=== PATIENT | female | born 1985 | race Caucasian/White ===

== ENCOUNTER 2016-11-02 08:27 | Day surgery (SDC) | payer OTHER ==
[2016-10-31 13:48] VITALS: BMI 38.4
[~2016-11-02 08:27] MED LIST: LACTATED RINGERS 1,000 ML IV SCH; LIDOCAINE 1% 20 ML VIAL (10MG/ML) FOR IV START INTRADERMA PRN
[2016-11-02 08:50] VITALS: RESP 16; TEMP 97.5
[2016-11-02] MEDS ORDERED: PROPOFOL 10 MG/ML 20 ML VIAL IV ONE (09:06)
--- NOTE | 2016-11-02 09:09 | P.GSHP ---
History of Present Illness H&P Date: 11/02/16 Chief Complaint: Epigastric pain 's is a 31-year-old female who presents today for EGD. She's had issues of epigastric pain. Patient had previous cholecystectomy. Her recent x-ray shows a dislodged clip from her cholecystectomy. - Constitutional Constitutional: Reports as per HPI Past Medical History Additional Past Medical History / Comment(s): . History of Any Multi-Drug Resistant Organisms: None Reported Past Surgical History: Adenoidectomy, Appendectomy, Cholecystectomy, Tonsillectomy Past Anesthesia/Blood Transfusion Reactions: Motion Sickness Smoking Status: Current every day smoker - Past Family History Father Family Medical History: Cancer Medications and Allergies Home Medications Medication Instructions Recorded Confirmed Type ALPRAZolam [Xanax] 0.5 mg PO DAILY PRN 10/31/16 11/02/16 History Allergies Allergy/AdvReac Type Severity Reaction Status Date / Time No Known Allergies Allergy Verified 11/02/16 08:41 Surgical - Exam Vital Signs Temp Pulse Resp BP Pulse Ox 97.5 F L 68 16 114/72 98 11/02/16 08:49 11/02/16 08:49 11/02/16 08:49 11/02/16 08:49 11/02/16 08:49 - General well developed, no distress - Eyes PERRL - ENT normal pinna - Neck no masses - Respiratory normal expansion - Cardiovascular Rhythm: regular - Abdomen Abdomen: soft, non tender Assessment and Plan Plan: Epigastric dull pain. We'll perform EGD to evaluate for gastritis.
--- NOTE | 2016-11-02 09:22 | P.OP ---
Date of Procedure: 11/02/16 Preoperative Diagnosis: Epigastric dull pain Postoperative Diagnosis: Mild antral gastritis No hiatal hernia. Mild esophagitis Procedure(s) Performed: EGD Implants: Anesthesia: MAC Surgeon: Raimundo Edmondson Pathology: other (Antral esophagus) Condition: stable Disposition: PACU Indications for Procedure: Operative Findings: Description of Procedure: The patient's placed on the endoscopy table lateral position. She received IV sedation. The gastroscope was placed oropharynx and passed into the esophagus and into stomach. Scope was then placed through the pylorus. The first and second portion duodenum appeared normal. There is known to any inflammation. Scope was then brought back the antrum and this was mildly inflamed. A biopsies performed. Scope was then retroflexed and then the remainder stomach appeared normal. There is no hiatal hernia. The GE junction was at 40 cm. The distal esophagus appeared minimally inflamed. Biopsies performed. The proximal esophagus appeared normal. Scope withdrawn for patient.
[2016-11-02 09:44] VITALS: PULSE 57
[2016-11-02 09:53] VITALS: BP 112/73
== END 2016-11-02 10:22 | disposition home or self-care (01) ==
LOC: ORWHC2ENDO 08:27
PROVIDERS: ATTEND Surgery
DX: K29.50 Unspecified chronic gastritis without bleeding (principal); K20.9 Esophagitis, unspecified; F41.9 Anxiety disorder, unspecified; F17.200 Nicotine dependence, unspecified, uncomplicated; Z90.49 Acquired absence of other specified parts of digestive tract
CPT/HCPCS: 43239; 81025; 88305; 88342; J2704

== ENCOUNTER 2022-05-04 09:31 | Day surgery (SDC) | payer BC, OTHER ==
[2022-05-02 14:11] VITALS: BMI 37.5
--- NOTE | 2022-05-03 20:49 | HP ---
HISTORY AND PHYSICAL CHIEF COMPLAINT: Fluid in both ears. HISTORY OF PRESENT ILLNESS: This patient is a pleasant 36-year-old female, who was recently seen in my office complaining of having a plugged sensation and pain in both ears. At the time that the patient was seen in the office, clinical examination of the ears revealed chronic bilateral serous otitis media, so-called glue ear. The patient was placed on a course of Decadron Dos-Tay and Zithromax. She returned approximately 2 weeks later with the same complaints. Clinical examination reveals she still has chronic bilateral serous otitis media. It was recommended that she undergo a bilateral myringotomy with insertion of ventilation tubes under general anesthesia. PAST MEDICAL HISTORY: Reveals that she has no known allergies to medications. MEDICATIONS: She is not currently on any medications. PREVIOUS SURGERIES: Include a cholecystectomy, removal of foreign body from the right ear, multiple bilateral myringotomies with insertion of ventilation tubes as a child, tonsillectomy, and adenoidectomy. PHYSICAL EXAMINATION: GENERAL: This patient is a 36-year-old female, who is alert and cooperative. HEENT: The patient is normocephalic. Tympanic membranes are dull and retracted with fluid in both middle ear spaces. Pupils are equal, round, and react to light and accommodation. Extraocular movements are within normal limits. Intranasal examination reveals mild septal deviation with compensatory hypertrophy of the inferior turbinates and mild amount of mucus on the mucous membranes and draining down the posterior pharynx. Examination of oropharynx, cranial nerves 2 through 12, and remainder of the head and neck exam all within normal limits. CHEST/CARDIOVASCULAR: Both lung reyes are clear to percussion and auscultation. The patient is in regular sinus rhythm. S1 and S2 are present without any murmurs or S3's. Peripheral pulses are bilaterally symmetrical. ABDOMEN: There is no evidence of any masses, megaly, or tenderness. The abdomen is soft. SKIN: Unremarkable. MUSCULOSKELETAL AND NEUROLOGICAL: Within normal limits. PELVIC AND RECTAL: Deferred at this time because the patient has this done on a regular basis at her family physician's office. The remainder of the physical exam is unremarkable. IMPRESSION: Chronic bilateral serous otitis media. PLAN: The patient is scheduled to undergo a bilateral myringotomy with insertion of ventilation tubes under general anesthesia in a.m. Attention, RNs in the pre-surgical area: I have not ordered any pre-surgical prophylactic antibiotics for this patient. If the Pharmacy Department sends any pre- surgical prophylactic antibiotics to the pre-surgical area for this patient, that order should be cancelled, and the medication should be returned to the Pharmacy Department. Also, make sure that the patient's account is credited appropriately. I have discussed the risks, benefits and alternative therapies for the above-mentioned procedure and for both sedation/analgesia as well as necessary blood product administration, if indicated, as they pertain to this patient. The patient has indicated her understanding and acceptance of the risks and procedures discussed. MMODL / IJN: [id number] /
[~2022-05-04 09:31] MED LIST changes: -LACTATED RINGERS 1,000 ML IV SCH; -LIDOCAINE 1% 20 ML VIAL (10MG/ML) FOR IV START INTRADERMA PRN; +Pre Op ABX Message 1 EACH MISC MISCELLANE ONE
[2022-05-04] MEDS ORDERED: MIDAZOLAM 2 MG/2 ML VIAL IV PRN (10:16)
[2022-05-04] MEDS ORDERED: LACTATED RINGERS 1,000 ML IV SCH (10:16)
[2022-05-04] MEDS ORDERED: HYDROmorphone 0.5 MG/0.5 ML SYRINGE IVP PRN (10:16)
[2022-05-04] MEDS ORDERED: ONDANSETRON 4 MG/2 ML VIAL ONE (10:17)
[2022-05-04] MEDS ORDERED: LACTATED RINGERS 1,000 ML IV ONE ×2 (10:24→12:46)
[2022-05-04] MEDS ORDERED: ONDANSETRON 4 MG/2 ML VIAL IVP ONE (10:58)
[2022-05-04] MEDS ORDERED: DEXAMETHASONE SOD PHOSPHATE 4 MG/ML 1 ML VIAL IVP ONE (11:01)
[2022-05-04] MEDS ORDERED: PROPOFOL 10 MG/ML 20 ML VIAL IV ONE (12:19)
[2022-05-04] MEDS ORDERED: fentaNYL (PF) 50 MCG/ML 2 ML AMP ONE (12:19)
[2022-05-04] MEDS ORDERED: MIDAZOLAM 2 MG/2 ML VIAL ONE (12:19)
[2022-05-04] MEDS ORDERED: KETOROLAC 15 MG/ML 1 ML VIAL ONE (12:19)
[2022-05-04] MEDS ORDERED: OFLOXACIN 0.3% OPHTH DROPS 5 ML BOTTLE BOTH EARS ONE (12:39)
[2022-05-04 13:28] VITALS: TEMP 97.5
[2022-05-04] MEDS ORDERED: CITRIC ACID-SODIUM CITRATE 15 ML CUP PO ONE (13:34)
[2022-05-04 14:26] VITALS: RESP 16
[2022-05-04] MEDS ORDERED: ACETAMINOPHEN TAB 325 MG TAB ONE (14:42)
[2022-05-04] MEDS ORDERED: ACETAMINOPHEN TAB 325 MG TAB PO ONE (14:44)
[2022-05-04 14:51] VITALS: BP 118/80; PULSE 70
--- NOTE | 2022-05-07 18:13 | OP ---
OPERATIVE REPORT PREOPERATIVE DIAGNOSIS: Chronic bilateral serous otitis media. POSTOPERATIVE DIAGNOSIS: Chronic bilateral serous otitis media. ANESTHESIA: General. PROCEDURE PERFORMED: Bilateral myringotomy with insertion of Activent collar tubes. COMPLICATIONS: None. ESTIMATED BLOOD LOSS: Zero. DESCRIPTION OF PROCEDURE: The patient was placed on the Operating table in the supine position after uneventful induction and IV sedation, satisfactory general anesthesia was obtained. Next, the operating microscope was brought into position over the patient's right ear where after insertion of a #3 aural speculum, the external canal was cleansed of all wax and debris. The myringotomy knife was used to make an incision in the anterior inferior quadrant of the right tympanic membrane. The middle ear space was suctioned free of all fluid, and an Activent collar ventilation tube was inserted without any difficulty. Attention was then directed to the left ear where the same procedure was carried out using the operating microscope, #3 aural speculum, the external auditory canal was cleansed of all wax and debris. The myringotomy knife was used to make an incision in the anterior inferior quadrant of the left tympanic membrane and the middle ear space was suctioned free of all fluid. An Activent collar ventilation tube was inserted without any difficulty. At this point, the procedure was terminated. There were no intraoperative complications. The patient tolerated the procedure well and was returned to the Recovery Room in satisfactory condition. MMODL / IJN: [id number] /
== END 2022-05-04 15:15 | disposition home or self-care (01) ==
LOC: OR 09:31
PROVIDERS: ATTEND Otolaryngology
DX: H65.23 Chronic serous otitis media, bilateral (principal); F17.210 Nicotine dependence, cigarettes, uncomplicated; Z90.49 Acquired absence of other specified parts of digestive tract; Z98.890 Other specified postprocedural states
CPT/HCPCS: 69436; 81025; J2250; J1100; J2405; J3010; J1885; J2704